=== PATIENT | male | born 1975 | race Hispanic/Latino ===

== ENCOUNTER 2016-11-28 21:21 | Emergency (ER) | payer SELFPAY ==
[~2016-11-28] VITALS: Ht 160 cm; Wt 59.1 kg
[2016-11-28 21:31] VITALS: PULSE 74; RESP 18; O2SAT 99
[2016-11-28] MEDS ORDERED: Tetracaine 0.5% 4 mL Ophthalmic Solution ONE (21:42)
[2016-11-28] MEDS ORDERED: Fluorescein 0.6 mg Ophthalmic Strip ONE (21:42)
[2016-11-28] MEDS ORDERED: 0.9% Sodium Chloride Inhalation Solution ONE (21:42)
--- NOTE | 2016-11-28 22:05 | ED.REPORT ---
HPI-Eye Problem Date of Service Nov 28, 2016 ED Provider: Aime Rodriguez DO Pt is an otherwise healthy 41 year old male who presents to the ED complaining of left eye pain onset prior to arrival. He c/o associated left eye laceration and left eye swelling. He denies any other symptoms and allergies. Per pt's , the pt was attaching a bungee cord to the garbage can when it accidentally hit his left eye. Pt is currently unable to open his left eye. Nursing Notes Stated Complaint: LEFT EYE LACERATION Chief Complaint: Laceration Nursing Notes Reviewed: Yes Allergies: Coded Allergies: No Known Allergies (Unverified , 11/28/16) General Time Seen by MD: 22:04 Chief Complaint Left eye affected Hx Obtained From: Patient Arrived By: Walk-in Sudden in Onset?: Yes Onset Occurred: Just prior to arrival Symptom Duration: Since onset Caused by: Blunt trauma Location: : Eye left Quality: Painful Severity: Current: Moderate Severity: Maximum: Moderate Recent Healthcare: No recent doctor visit, No recent hospitalization Similar Sx Previous: No Past Medical History Past Medical History Denies Past Surgical History Denies Family History Denies Smoking History Unknown if Ever Smoker Social History Other Social History: Good social support Ambulatory Status Independent Review of Systems + Left eye swelling + Left eye laceration Constitutional: Denies: Fever Eyes: Reports: Eye pain left, Denies: Visual loss left Complete sys rev & neg: except as marked. Physical Exam Initial Vital Signs Vital Signs (First) Date Time Temp Pulse Resp B/P Pulse Ox O2 Delivery O2 Flow Rate FiO2 11/28/16 21:31 36.4 74 18 99 Room Air 11/29/16 00:16 130/86 Initial VS: Reviewed Neck: Supple, Full range of motion Respiratory: Breath sounds normal, Clear to auscultation, No respiratory distress Cardiovascular: Regular rate & rhythm, Heart sounds normal, Intact distal pulses Abdomen / GI: Soft, Non-tender Extremities: Vascular intact, Neuro intact Skin: Warm, Dry, No cyanosis Neurologic: Alert, Oriented, Nonfocal Psychiatric: Mood/affect normal, Behavior normal Left eye: 15-20% hyphema. Abnormally shaped pupil consistent with iris injury. [place] at 2 o'clock position on eye. Corneal abrasion without evidence of globular damage. Negative Marilyn sign. General/Constitutional: Awake, Alert Procedures Slit Lamp Exam Corneal abrasion without evidence of globular damage. Negative Marilyn sign. Time: 23:23 Procedure Performed by: ED physician Which Eye: Left Re-Eval/Medical Decision Source of Hx: Old records Re-Evaluation/Progress #1: Time of Eval: 23:16 Re-Evaluation/Progress Note: Pt rechecked. Examined pt's eye to Dr. iKm's recommendations. Re-Evaluation/Progress #2: Time of Eval: 22:30 Re-Evaluation/Progress Note: Pt rechecked. Examined pt's eye. All questions addressed. Re-Evaluation/Progress #3: Time of Eval: 23:35 Re-Evaluation/Progress Note: Pt rechecked. Informed pt of plan for discharge. Pt understands and agrees with plan for discharge. F/U instructions and RTER warnings given. All questions addressed. Consultation : Referral / Consult Name: CHERI KIM MD Call Returned at: 22:33 Legal Executive: Agrees with eval, Agrees with plan Note: Recommends putting in hemostat and retracting eye lid with paperclip. Counseled Regarding: Diagnosis, Need for follow-up, When/why to return to ED Discharge & Departure Primary Impression: Hyphema of left eye Additional Impressions: Corneal abrasion Encounter type: initial encounter Laterality: left Qualified Code: S05.02XA - Injury of conjunctiva and corneal abrasion without foreign body, left eye, initial encounter Eye trauma Eye laceration Encounter type: initial encounter Laterality: left Qualified Code: S05.32XA - Ocular laceration without prolapse or loss of intraocular tissue, left eye, initial encounter Blunt eye trauma Encounter type: initial encounter Laterality: left Qualified Code: S05.92XA - Unspecified injury of left eye and orbit, initial encounter Disposition: Home Discharge Condition All VS Reviewed: Yes Condition: Stable Patient Instructions: Corneal Abrasion (ED), Hyphema (ED) Additional Instructions: Cyclogyl 1 drop every 8 hours to the left eye. Prednisone 1 drop every 2 hours. Set an alarm to wake up. Cipro 1 drop every 2 hours. Again sent alarm to do this. [place] 1-2 every 6 hours as needed. Do not drive or drink alcohol or consume acetaminophen while on [place]. Call the referral rn invasive tomorrow morning () at 8:30 AM for a follow-up appointment tomorrow. Sleep at at least 30 degrees. Keep your eye shielded, and don't lay flat. Return to the Emergency Department for any new or worrisome symptoms. Referrals: CHERI KIM MD [facility] Scribe Attestation Portions of this note were transcribed by Annette Hartmann. I, Dr. Rodriguez personally performed the history, physical exam and medical decision-making; I reviewed and confirmed the accuracy of the information in the transcribed note. Signed by : Nilsa Palacios, 11/28/16 copies to: CHERI KIM MD; [facility] Aime Rodriguez DO Nov 28, 2016 22:05 Annette Briceno Nov 28, 2016 22:27
[2016-11-28] MEDS ORDERED: PrednisoLONE 1% 5 mL Ophthalmic Suspension AFFECT_EYE SCH ×2 (22:45→23:00)
[2016-11-28] MEDS ORDERED: Ciprofloxacin 0.3% 5 mL Ophthalmic Solution LEFT_EYE SCH ×2 (23:13→23:30)
[2016-11-28] MEDS ORDERED: Cyclopentolate 2% 2 mL Ophthalmic Solution LEFT_EYE SCH (23:15)
[2016-11-28] MEDS ORDERED: _HYDROcodone/APAP 5-325 mg Tablet PO PRN (23:30)
[2016-11-28] MEDS ORDERED: TdaP Vaccine 0.5 mL Inj IM ONE (23:35)
[2016-11-29 00:16] VITALS: BP 130/86; PULSE 64; RESP 16; O2SAT 97
[2016-11-29] MEDS ORDERED: Cyclopentolate 2% 2 mL Ophthalmic Solution LEFT_EYE ONE (00:30)
== END 2016-11-29 00:14 | disposition home or self-care (01) ==
LOC: SED 21:21
DX: S05.32XA Ocular laceration without prolapse or loss of intraocular tissue, left eye, initial encounter (principal); S05.02XA Injury of conjunctiva and corneal abrasion without foreign body, left eye, initial encounter; S05.12XA Contusion of eyeball and orbital tissues, left eye, initial encounter; W22.8XXA Striking against or struck by other objects, initial encounter; Y93.89 Activity, other specified; Y92.9 Unspecified place or not applicable; Y99.8 Other external cause status; Z23 Encounter for immunization